=== PATIENT | male | born 1940 | race Caucasian/White ===

== ENCOUNTER 2016-09-11 10:21 | Inpatient (IN) ==
--- NOTE | 2016-09-11 10:58 | Anesthesia Evaluation PreOp ---
Date of Encounter: 09/11/16 Time of Encounter: 10:54 - Past History Planned Operation: right partial nephrectomy Cardiac History: HTN, Hyperlipidemia, Other (He has 100% occlusion of LAD with good quality collateral circulation. Stess test shows some ischemia septal, apical and anterior that is reversible. LVEF 67%. 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 Any Significant HX Other Medical History: Denies Any Significant HX Anesthesia History: No Prior Anesthetic Complications, Past Anesthesia ( Backsurgery, left TSR, hydrocele) Alcohol Use: occasionally (daily one beer) Drug use: none Medications and Allergies Allergies No Known Allergies Allergy (Verified 09/11/16 10:54) - Meds/Allergy Pre-op Review Medications Reviewed: Yes Allergies Reviewed: Yes Beta Blockers on Current Med List: No (Patient was instructed to stop Metoprolol for bradycard) Anesthesia Results - Labs Laboratory Tests 09/04/16 09/04/16 10:08 10:08 Hgb 14.7 Hct 44.9 Plt Count 208 Sodium 140 Potassium 3.9 BUN 18 Creatinine 1.13 - Imaging EKG: report reviewed Anesthesia Exam Height: 69in Weight: 217lbs NPO (# of Hours): 8 Pain Scale: 0 Pain Scale Used: Numeric (1 - 10) - HEENT Pupil (Motor): EOMI Mallampati: III Teeth: Edentulous Oral Opening: Greater than 3 (Has poor extension of cervical spine) - TUNE UP MECHANIC LOC: Oriented TUNE UP MECHANIC Motor: Normal RUE, Normal LUE, Normal RLE, Normal LLE, Normal Face TUNE UP MECHANIC Sensory: Normal: RUE, LUE, RLE, LLE, Face - Cardiac Rhythm: Regular Murmur: None - Pulmonary Breath Sounds: bilateral Clear Respiratory Effort: Symmetrical Anesthesia Assess/Plan ASA Score: 4 Modified [place] Scale for Level of Consciousness: Cooperative, oriented, and tranquil Anesthetic Plan: General Monitoring Plan: Standard Monitors, A-Line Recovery Plan: PACU (Discussed high risks of GA due to CAD and stress of surgery. Discussed possible need for bllod and need for a-line. Questions answered. Advised that he may require ICU based on intraoperative course. Agrees to proceed.)
[2016-09-11] MEDS ORDERED: Lidocaine -MPF 1% 2 ML VIAL ID ONE (11:04)
[2016-09-11] MEDS ORDERED: Ringers Solution, Lactated 1,000 ML IVC SCH (11:15)
[2016-09-11] MEDS ORDERED: *HR* Succinylcholine 200 MG/10 ML VIAL IVP ONE (12:26)
[2016-09-11] MEDS ORDERED: *HR* Rocuronium Bromide 50 MG/5 ML VIAL ONE (12:26)
[2016-09-11] MEDS ORDERED: Dexamethasone 4 MG/ML VIAL ONE (12:26)
[2016-09-11] MEDS ORDERED: Ondansetron 4 MG/2 ML VIAL ONE (12:26)
[2016-09-11] MEDS ORDERED: *HR* Etomidate 40 MG/20 ML VIAL IVP ONE (12:26)
[2016-09-11] MEDS ORDERED: Lidocaine -MPF 4% 5 ML AMPUL ONE (12:26)
[2016-09-11] MEDS ORDERED: *HR* Propofol 200 MG/20 ML VIAL IVP ONE (12:27)
[2016-09-11] MEDS ORDERED: *HR* FentaNYL (PF) 100 MCG/2 ML VIAL ONE ×2 (12:30→14:11)
[2016-09-11] MEDS ORDERED: *HR* Midazolam HCl 2 MG/2 ML VIAL ONE (12:30)
[2016-09-11] MEDS ORDERED: Heparin 1,000 UNITS/500 mL NS 500 ML ONE (12:30)
[2016-09-11] MEDS ORDERED: CeFAZolin Pre 2,000 MG/100 ML 2,000 MG/100 ML BAG IVPB ONE (12:35)
--- NOTE | 2016-09-11 12:56 | History & Physical Report ---
Date of Encounter: 09/11/16 Time of Encounter: 12:56 24 Hour HP Update - Instructions Instructions: If the History and Physical is less than 30 days old and was completed prior to A.M. admission and or procedure and has NOT been updated on calendar day of procedure please complete this update prior to performing procedure. - Update Patient reports changes in Medical Condition: No Changes in examination, assessment, or condition: No Changes in Medication: No Preop tests/diagnostics Reviewed: Yes Surgery Remains Indicated: Yes Consent for Planned Operative Procedure(s) Verified: Yes - Pre-Operative Checklist Preoperative Checklist Indicated: Yes Prophylactic Antibiotic Ordered: Yes Home Medications Include Beta Toni: No Beta Toni Taken Today (Day of Surgery): No Beta Toni Taken Yesterday (Day Prior to Surgery): No Is VTE Prophylaxis Indicated?: Yes
--- NOTE | 2016-09-11 13:20 | Anesthesia Procedures ---
Date of Encounter: 09/11/16 Time of Encounter: 13:16 Procedures: Anesthesia - Arterial Line Consent obtained: verbal consent Time out performed: Yes Sedation: Versed (mg): 2 Sedation: Fentanyl (mcg): 0 Supplemental Oxygen via Nasal Cannula (L/min): 2 Local Anesthetic: Lidocaine 1% Amount of Anesthetic used (mls): 1 Size (Gauge): 20 Length (inches): 1 3/4 Technique Used: sterile prep, guide wire technique, direct puncture technique Post-Procedure: line taped into place Patient tolerated procedure: well, no complications Complications: none Site: Radial R Vitals: 3 Vital Signs 1305 1315 Time BP 180/106 149/84 Pulse 62 64 Resp 18 18 O2 Sat 96% RA 97%2L Anes Supervising Prov Stmt: Sterile P&D. Landmarks identified. Radial Pulse easily palpated. 1% Lidocaine local. RAdial Artery readily cannulated w/ 20G Arrow. +BRB ascending. Seldinger technique. Guidewire advanced easily, and catheter easily over guidewire. Catheter secured. Pt tolerated procedure well and without any immediate complications. Yassine Saha
[2016-09-11] MEDS ORDERED: Bupivacaine/EPI 1:200k 0.25%PF 30 ML VIAL ONE (13:47)
[2016-09-11] MEDS ORDERED: EPHEDrine 50 MG/ML VIAL ONE (15:59)
[2016-09-11] MEDS ORDERED: Mannitol 25% vial 12.5 GM/50 ML VIAL ONE (16:09)
[2016-09-11] MEDS ORDERED: Neostigmine Methylsulfate 3 MG/3 ML SYRINGE ONE (17:02)
[2016-09-11] MEDS ORDERED: Ondansetron 4 MG/2 ML VIAL IVP ONE (17:08)
[2016-09-11] MEDS: *HR* Morphine 2 MG/ML SYRINGE IVP PRN ×3 (18:11→18:29)
[2016-09-11] MEDS ORDERED: Acetaminophen IV 1,000 MG/100 ML INFUS..BTL IVPB ONE (18:25)
--- NOTE | 2016-09-11 18:45 | Anesthesia Evaluation Post Op ---
Date of Encounter: 09/11/16 Time of Encounter: 18:45 - Vital Signs Vital Signs: Vital Signs/O2 Sat/Glucose, Most Current Temp Pulse Resp BP Pulse Ox 09/11/16 18:37 97.2 F L 69 16 153/93 92 09/11/16 18:27 71 22 132/81 96 09/11/16 18:17 70 22 155/98 97 09/11/16 18:07 97.2 F L 73 22 155/102 92 09/11/16 17:57 74 22 157/89 97 09/11/16 17:45 66 26 141/81 97 09/11/16 17:35 97.4 F L 66 26 140/75 93 - Lungs Lungs: Clear Ascult./Percussion - Airway Airway: Non-obstructed - Cardiovascular Regular Rate - Mental Status Mental Status: Alert & Oriented, Answers Appropriately - Pain Pain Scale: 0 - Nausea Vomiting Nausea Vomiting: Not Present - Hydration Hydration: Ice chips - Discharge PostOp Status: Transfer Patient to floor
[2016-09-11] MEDS ORDERED: *HR* Promethazine 25 MG/ML VIAL IV PRN (19:31)
[2016-09-11] MEDS ORDERED: *HR* Morphine 2 MG/ML SYRINGE IVP PRN (19:31)
[2016-09-11] MEDS ORDERED: Nitroglycerin 0.4 MG TAB.SUBL SL PRN (19:31)
[2016-09-11] MEDS ORDERED: *HR* HYDROmorphone (PF) 1 MG/ML SYRINGE IVP PRN (19:31)
[2016-09-11] MEDS ORDERED: Ondansetron 4 MG/2 ML VIAL IVP PRN (19:31)
[2016-09-11] MEDS ORDERED: 0.9 % Sodium Chloride 1,000 ML IVC SCH (19:31)
[2016-09-11] MEDS ORDERED: Naloxone 0.4 MG/ML INJ IVP PRN (19:31)
[2016-09-11] MEDS: amLODIPine 5 MG TABLET PO SCH (21:37)
--- NOTE | 2016-09-11 21:51 | Operative Note ---
Date of procedure: 09/11/16 Pre-op diagnosis: right renal mass Post-op diagnosis: same Procedure: robotic right partial nephrectomy Anesthesia: EMMA Surgeon: Rhett Wing Carpet Inspector Finished: Avel Quijano Estimated blood loss (cc): 50 Specimen: renal mass Condition: stable Disposition: PACU Procedure in Detail: The patient was brought to OR and placed supine position. General anesthsia applied without complication. huerta cath placed with return of clear urine. He was then moved in the full flank position. Pillows and blankets were placed in between the arms, which are then secured together with tape. Elbows placed in forward position.. Tape was placed across the chest and hip and the patient secured with straps. A body-warming device is placed on the lower body. After positioning, the table was rotated flat and the patient was then prepped and draped. Time out performed to confirm proper patient and procedure. A 12mm length incision for the camera port was made lateral to the umbilicus using 15 scalpal. a Veress needle and Visiport were used to place the long 12 mm port. No significant adhesions were seen. Additional robotic ports were placed at least 10+ cm from the camera port and a triangular fashion around the kidney. Carpet Inspector Finished port placed between the lower robotic port and the camera. later in the case a 5 mm port placed for retraction aboove the camera port. No fourth arm was placed. The robot was docked directly over the patient's head parallel to the spine. Once docked, the robotic instruments were inserted -right arm, monopolar scissors; left arm, bipolar [place] graspers. I began to incise along the white line of Toldt to reflect the right colon medially. This was completed down to the appendix and up to the hepatic flexure. I was able to identify the duodenum but I did not need to perform a Narda maneuver to expose the hilum.. A well-defined tissue plane was identified on the medial aspect of the kidney was followed until the renal vein was encountered. Based on preoperative review of the CT scan was an early bifurcation of the renal artery. The renal vein and renal artery were dissected. We first identified the superior branch of the artery and it was isolated. The main renal artery was later identified posterior to the renal vein. All 3 vessels were dissected without significant bleeding or injury to the vessels. There was adequate space for later placement of the bulldog clamps. I then began to clear the space around the renal tumor. All adipose tissue was cleared from the anterior aspect of the kidney. The tumor was only minimally endophytic and the laparoscopic ultrasound probe was used to better defined the lesion. It was demarcated using monopolar coag lawson on the parenchyma. 3 bulldog clamps were then placed through the surgical dental assistant port on the both of the renal arteries and renal vein. No ICG was used.. We then proceeded with the partial nephrectomy. Using scissors and fenestrated graspers I excised the tumor. No excessive bleeding occurred during this step. Visually it appeared appropriate margins were obtained. A 3-0 v lock suture with a hemoloc and Lapra-Ty at the end was then placed. This was started from the more superior aspect of the parenchyma and carried through the tumor defect. After a total of 4 CT1 0 Vicryl sutures with Lapra-Ty's and hemoloc's were then placed to close the parenchymal defect. I gently cinched down each hemoloc to further secure the defect. FloSeal and was placed over the defect. Prior to placement of FloSeal the bulldog clamps were removed. A total of 27 minutes of ischemia time was recorded. 12.5 g of mannitol was given before and after renal artery clamping. There was some mild bleeding from the superior aspect of the partial nephrectomy site. This seemed to slow with the placement of FloSeal and no further intervention was required. At that point the tumor specimen was retrieved in Endo Catch bag. A 7 Sami PORSHA was placed through the lower surgical dental assistant port and draped over the partial nephrectomy site. The robot was undocked and the Endo Catch string was looped through the camera port. I secured the PORSHA with a nylon suture. Robotic ports were removed. I did not have to enlarge the camera port to accommodate the tumor. The fascia at the camera port site was closed with a #1 Vicryl on a UR 6. Remaining sites were closed using 0 Vicryl and 4-0 Monocryl. Dermabond was placed. All counts were correct. No complications were noted.
[2016-09-12] MEDS ORDERED: ceFAZolin 2,000 MG in D5% in Water 100 ML IVPB SCH
[2016-09-12 05:25] LABS: Basophils % 0.1 %; Hematocrit 41.2 % (37.5-50.1); Hemoglobin 14.2 g/dL (12.9-16.9); Immature Granulocytes % 0.3 % (0-4); Lymphocytes # 0.8 K/mcL (0.6-4.6); Lymphocytes % 7.8 %; Mean Corpuscular HGB Conc 34.5 g/dL (31.6-35.5); Mean Corpuscular Hemoglobin 32.3 pg (28.0-33.3); Mean Corpuscular Volume 93.6 fL (83.0-100.0); Monocytes # 0.9 K/mcL (0.0-1.3); Monocytes % 9.2 %; Neutrophils # 8.5 K/mcL (1.6-8.9); Platelet Count 187 K/mcL (140-400); Segmented Neutrophils % 82.6 %
[2016-09-12 05:37] LABS: BUN/Creatinine Ratio 17 (6-26); Blood Urea Nitrogen 17 mg/dL (8-26); Calcium 8.3 mg/dL (8.6-10.8); Carbon Dioxide 24 mEq/L (19-29); Chloride 104 mEq/L (98-109); Glucose 129 mg/dL (70-99); Osmolality,Calculated 285 (280-300); Potassium 4.2 mEq/L (3.5-4.5); Sodium 136 mEq/L (136-145); eGFR For African Americans > 60 (> 60); eGFR For Non-African Americans > 60 (> 60)
--- NOTE | 2016-09-12 07:10 | Urology Progress Note ---
Date of Encounter: 09/12/16 Time of Encounter: 07:08 - Assessment and Plan (1) Right renal mass Current Visit: Yes Status: Acute Assessment and plan: pt doing great. no apparent complications. plan to remove cath, stop IVF, stop ABX, advance diet, OOB and ambulate. possible discharge this afternoon depending on progress. Progress Note Subjective: feels better Narrative: pt doing great. minimal pain. asking when he can leave. no nausea. has not been out of bed yet. no CP Objective Initial Vital Signs Temp Pulse Resp BP Pulse Ox 97.1 F L 73 16 154/91 97 09/11/16 11:07 09/11/16 11:07 09/11/16 11:07 09/11/16 11:07 09/11/16 11:07 - General physical appearance Present: well developed, no distress - Additional Exam mildly distented ABD. faint BS. PORSHA with minimal output - serosanguinous. huerta clear. - Labs 09/12/16 04:39 09/12/16 04:39 Diabetes panel 09/12/16 Range/Units 04:39 Sodium 136 (136-145) mEq/L Potassium 4.2 (3.5-4.5) mEq/L Chloride 104 (98-109) mEq/L Carbon Dioxide 24 (19-29) mEq/L BUN 17 (8-26) mg/dL Creatinine 1.03 (0.72-1.25) mg/dL Glucose 129 H (70-99) mg/dL Calcium 8.3 L (8.6-10.8) mg/dL Calcium panel 09/12/16 Range/Units 04:39 Calcium 8.3 L (8.6-10.8) mg/dL Pituitary panel 09/12/16 Range/Units 04:39 Sodium 136 (136-145) mEq/L Potassium 4.2 (3.5-4.5) mEq/L Chloride 104 (98-109) mEq/L Carbon Dioxide 24 (19-29) mEq/L BUN 17 (8-26) mg/dL Creatinine 1.03 (0.72-1.25) mg/dL Glucose 129 H (70-99) mg/dL Calcium 8.3 L (8.6-10.8) mg/dL Adrenal panel 09/12/16 Range/Units 04:39 Sodium 136 (136-145) mEq/L Potassium 4.2 (3.5-4.5) mEq/L Chloride 104 (98-109) mEq/L Carbon Dioxide 24 (19-29) mEq/L BUN 17 (8-26) mg/dL Creatinine 1.03 (0.72-1.25) mg/dL Glucose 129 H (70-99) mg/dL Calcium 8.3 L (8.6-10.8) mg/dL - VTE Documentation of Mechanical Device: Intermittent pneumatic compression device Consult Discharge Plan - Plan Referrals: Rhett Flynn DO [Primary Care Provider] - Rhett Wing MD [Partnered Physician] -
[2016-09-12] MEDS ORDERED: *HR* OxyCODONE/APAP 5/325 TABLET PO PRN (07:12)
[2016-09-12] MEDS: amLODIPine 5 MG TABLET PO SCH (08:24)
[2016-09-12] MEDS ORDERED: Isosorbide MONOnitrate (24 HR) 30 MG TAB.ER.24H PO SCH (09:00)
[2016-09-12 12:29] VITALS: BP 134/83
--- NOTE | 2016-09-12 14:25 | Discharge Summary ---
Date of Encounter: 09/12/16 Time of Encounter: 14:23 - Discharge Diagnosis (1) Right renal mass Priority: Primary Status: Resolved - Discharge Medications Prescriptions: HYDROcodone/Acet 5/325 mg [[place] 5-325 mg] 1 tab PO Q4H PRN #30 tab PRN Reason: Pain Home Medications: Aspirin 325 mg PO DAILY 09/11/16 [History] Finasteride [Proscar] 5 mg PO DAILY 09/11/16 [History] Isosorbide MONOnitrate (24 HR) [Imdur] 30 mg PO DAILY 09/11/16 [History] Loperamide HCl [Imodium A-D] 2 mg PO 8XD PRN 09/11/16 [History] Losartan Potassium [Cozaar] 100 mg PO DAILY 09/11/16 [History] Naproxen [Naprosyn] 500 mg PO BID 09/11/16 [History] Nitroglycerin [Nitrostat] 0.4 mg SL Q5M PRN 09/11/16 [History] Pravastatin Sodium [Pravachol] 20 mg PO HS 09/11/16 [History] amLODIPine [Norvasc] 5 mg PO DAILY 09/11/16 [History] HYDROcodone/Acet 5/325 mg [[place] 5-325 mg] 1 tab PO Q4H PRN #30 tab 09/12/16 [Rx ] Allergies/Adverse Reactions: Allergies No Known Allergies Allergy (Verified 09/11/16 10:54) Labs on day of discharge: Labs from last 24 hours 09/12/16 09/12/16 04:39 04:39 WBC 10.3 RBC 4.40 Hgb 14.2 Hct 41.2 MCV 93.6 MCH 32.3 MCHC 34.5 RDW 13.0 Plt Count 187 MPV 10.0 Immature Gran % 0.3 Seg Neutrophils % 82.6 Lymphocytes % 7.8 Monocytes % 9.2 Eosinophils % 0.0 Basophils % 0.1 Neutrophils # 8.5 Lymphocytes # 0.8 Monocytes # 0.9 Eosinophils # 0.0 Basophils # 0.0 Sodium 136 Potassium 4.2 Chloride 104 Carbon Dioxide 24 BUN 17 Creatinine 1.03 Est GFR ( Amer) > 60 Est GFR (Non-Af Amer) > 60 BUN/Creatinine Ratio 17 Glucose 129 H Calculated Osmolality 285 Calcium 8.3 L Date of admission: 09/11/16 18:58 Primary care physician: Rhett Flynn Discharging clinician: Rhett Wing Anticipated date of discharge: 09/12/16 - Patient Status Disposition: Home, Self-Care Condition: Good Functional capacity at discharge: independent ambulation Overall status at discharge: patient is progressing back to baseline - Discharge Instructions Follow Up With: Rhett Flynn DO [Primary Care Provider] - Rhett Wing MD [Partnered Physician] - (2-4 weeks in [place]) Additional Instructions: Okay to shower No baths or swimming Okay to drive in 1 week if off of pain medication Okay to ambulate for exercise Avoid heavy lifting, heavy activity and straining Take a stool softener if constipated. Stay well-hydrated with water. Decreased appetite is okay. Call if excessive nausea or vomiting Call if severe abdominal pain or fever over 101 Lower incision may drain for the next couple days. Reinforce with dressings. Call if it does not stop draining after 5 days - Diet and Activity Activity: other Diet: advance to your usual diet - Hospital Course Hospital course: Mr. Van is a 76 year old male postoperative day #1 robotic right partial nephrectomy. Doing excellent today. Stable hemoglobin. Stable blood pressure and pulse. Catheter is out and he is urinating. Tolerating a diet without nausea. Ambulating with minimal difficulty. Pain is controlled. PORSHA with less than 100 mL of output. PORSHA was removed. Plan to discharge this afternoon. Patient and his are comfortable with discharge - Time Spent with Patient Total time spent providing and/or coordinating discharge services: Less than 30 minutes Exam Initial Vital Signs Temp Pulse Resp BP Pulse Ox 97.1 F L 73 16 154/91 97 09/11/16 11:07 09/11/16 11:07 09/11/16 11:07 09/11/16 11:07 09/11/16 11:07 - General physical appearance Present: well developed, no distress - Additional Findings Mildly distended abdomen. Positive bowel sounds. PORSHA removed with minimal drainage at the site. All bandages removed. Incisions closed and intact - VTE Documentation of Mechanical Device: Intermittent pneumatic compression device
== END 2016-09-12 16:16 | disposition home or self-care (01) | DRG 661 ==
LOC: SAMDAY 10:21 → 3ANU 18:58
PROVIDERS: ADMIT Urology; ATTEND Urology